=== PATIENT | male | born 1970 | race African-American/Black ===

== ENCOUNTER 2020-06-10 17:23 | Emergency (ER) | payer OTHER ==
[2020-06-10] MEDS ORDERED: Furosemide 40 MG/4 ML VIAL ONE (17:51)
[2020-06-10] MEDS ORDERED: Aspirin Chewable 81 MG TAB ONE (17:51)
[2020-06-10 18:03] LABS: #Basophils 0.1 thou/uL (0.0-0.2); #Eosinphils 0.6 thou/uL (0.0-0.7); #Lymphocytes 0.7 thou/uL (1.20-3.40); #Monocytes 0.5 thou/uL (0.11-0.59); #Neutrophils 8.2 thou/uL (1.40-6.50); %Basophils 0.9 % (0.0-1.0); %Monocytes 4.7 % (0.0-10.0); %Neutrophils 81.4 % (42.0-75.0); Hemoglobin 9.3 g/dL (14.0-18.0); Mean Corpuscular Hemoglobin 29.8 pg (27.0-31.0); Mean Platelet Volume 6.1 fL (7.4-10.4); Platelet Count 244 thou/uL (130-400); Red Blood Cell (RBC) Count 3.14 mill/uL (4.70-6.10); White Blood Cell (WBC) Count 10.1 thou/uL (4.8-10.8)
[2020-06-10 18:10] LABS: INR-International Normal Ratio 1.1; PTT 24.5 sec (22.9-36.1); Prothrombin Time 14.1 sec (12.0-14.7)
[2020-06-10 18:11] LABS: D-Dimer Test 2.21 *mcg/mL (0.27-0.43)
--- NOTE | 2020-06-10 18:13 | RAD ---
PORTABLE CHEST: Date: 06-10-2020 PROVIDED CLINICAL HISTORY: Dyspnea FINDINGS: Heart size appears prominent, which may be at least partially on the basis of portable technique. The re is bilateral airspace disease predominately at the lower lung zones. No pleural fluid or pneumotho rax apparent. IMPRESSION: Bilateral airspace disease, which may reflect pneumonia or edema. Follow up recommended. POS: [facility]
[2020-06-10 18:19] LABS: ALT (SGPT) 28 U/L (8-55); AST (SGOT) 28 U/L (5-34); Albumin 3.2 g/dL (3.5-5.0); Alkaline Phosphatase 97 U/L (40-110); Anion Gap 18 mmol/L (10-20); BUN (Urea Nitrogen) 42 mg/dL (8.9-20.6); Bilirubin, Total 0.3 mg/dL (0.2-1.2); CK (CPK) 1275 U/L (30-200); Calc. Creatinine Clearance 0 mL/min (70-130); Calcium 7.8 mg/dL (7.8-10.44); Carbon Dioxide 22 mmol/L (22-29); Chloride 104 mmol/L (98-107); Globulin 3.8 g/dL (2.4-3.5); Glucose 195 mg/dL (70-105); Potassium 4.2 mmol/L (3.5-5.1); Sodium 140 mmol/L (136-145)
[2020-06-10 18:29] LABS: CKMB 8.1 ng/mL (0-6.6)
[2020-06-10] MEDS ORDERED: Heparin 25,000 units/D5W 500 ML ONE (18:58)
[2020-06-10] MEDS ORDERED: Heparin 5,000 UNITS/ML VIAL ONE ×2 (19:05→19:06)
[2020-06-10] MEDS ORDERED: Lisinopril 10 MG TAB ONE (19:45)
[2020-06-10] MEDS ORDERED: Metoprolol Tartrate 50 MG TAB ONE (19:45)
== END 2020-06-10 19:59 | disposition short-term general hospital (02) ==
LOC: MADERS 17:23
DX: I21.4 Non-ST elevation (NSTEMI) myocardial infarction (principal); R79.1 Abnormal coagulation profile; I13.2 Hypertensive heart and chronic kidney disease with heart failure and with stage 5 chronic kidney disease, or end stage renal disease; I50.9 Heart failure, unspecified; N18.6 End stage renal disease; R06.03 Acute respiratory distress; E11.22 Type 2 diabetes mellitus with diabetic chronic kidney disease; F17.210 Nicotine dependence, cigarettes, uncomplicated; Z79.899 Other long term (current) drug therapy; Z79.4 Long term (current) use of insulin
CPT/HCPCS: 36415; 36416; 71045; 80053; 82550; 82553; 83880; 84484; 85025; 85379; 85610; 85730; 93005; 96365; 96374; 96375; J1644; J1940